=== PATIENT | female | born 1985 | race Caucasian/White ===

== ENCOUNTER 2017-12-16 07:09 | Emergency (ER) | payer BC, OTHER ==
--- NOTE | 2017-12-16 07:30 | EDM.PDOC ---
ED HPI GENERAL MEDICAL PROBLEM - General Chief Complaint: ENT Problem Stated Complaint: SORE THROAT Time Seen by Provider: 12/16/17 07:14 Source of Information: Reports: Patient History Limitations: Reports: Physical Impairment (Difficulty talking) - History of Present Illness INITIAL COMMENTS - FREE TEXT/NARRATIVE: The patient states that she has had a cough on and off since August 2017. She has had "tonsil stones"in the past, and was seen by her PCP, Nicolasa Saavedra , yesterday for this. The patient states that no tests were done, but that she will be referred to an ENT for possible tonsillectomy. She states that she started having a sore throat yesterday. It got better, but was much worse this morning. No recent fever. She denies ear pain. The patient has no prior diagnosis of streptococcal pharyngitis. The patient's boyfriend confirms that the patient snores. - Related Data Allergies Allergy/AdvReac Type Severity Reaction Status Date / Time No Known Allergies Allergy Verified 12/16/17 07:16 Home Meds: Home Meds . [No Known Home Meds] 12/16/17 [History] Past Medical History FACING [employer] J[employer]STING History: Reports: Other (See Below) (Ovarian cysts) Endocrine/Metabolic History: Reports: Other (See Below) (Prediabetes) - Past Surgical History HEENT Surgical History: Reports: Oral Surgery ([place] teeth extraction) GI Surgical History: Reports: Colonoscopy Social & Family History - Tobacco Use Smoking Status *Q: Never Smoker - Alcohol Use Alcohol Use History: Yes Alcohol Use Frequency: Socially - Recreational Drug Use Recreational Drug Use: No - Living Situation & Occupation Living situation: Reports: , with Spouse, with Family (3 foster children) 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 ED EXAM, ENT - Physical Exam Exam: See Below Exam Limited By: No Limitations General Appearance: Alert, WD/WN, Anxious, Mild Distress (Having difficulty talking) Eye Exam: Bilateral Eye: Normal Inspection Ears: Normal External Exam, Normal Canal, Hearing Grossly Normal, TM Erythema ( Mild, bilateral. No bulging.) Nose: Normal Inspection, Normal Mucousa, No Blood Mouth/Throat: Normal Inspection, Normal Gums, Normal Lips, Normal Teeth, Uvular Edema. No: Peritonsillar Mass, Pharyngeal Erythema, Throat Swelling, Tonsillar Erythema, Tonsillar Exudates, Tonsillar Swelling Head: Atraumatic, Normocephalic Neck: Normal Inspection, Supple, Non-Tender, Full Range of Motion. No: Lymphadenopathy (L), Lymphadenopathy (R) Respiratory/Chest: No Respiratory Distress, Lungs Clear, Normal Breath Sounds, No Accessory Muscle Use Cardiovascular: Normal Peripheral Pulses, Regular Rate, Rhythm, No Gallop, No JVD, No Murmur, No Rub GI/Abdominal: Normal Bowel Sounds, Soft, Non-Tender, No Organomegaly, No Distention, No Abnormal Bruit, No Mass (Female) Exam: Deferred Back: Normal Inspection, Full Range of Motion Extremities: Normal Inspection, Normal Range of Motion, No Pedal Edema, Normal Capillary Refill Neurological: Alert, Oriented, Normal Cognition, No Motor/Sensory Deficits Psychiatric: Normal Affect, Anxious Skin: Warm, Dry, Intact, Normal Color, No Rash Course - Vital Signs Last Recorded V/S: Last Vital Signs Temp 36.8 C 12/16/17 07:16 Pulse 65 12/16/17 07:16 Resp 22 H 12/16/17 07:16 BP 141/85 H 12/16/17 07:16 Pulse Ox 100 12/16/17 07:16 - Orders/Labs/Meds Orders: Active Orders 24 hr Category Date Time Status CULTURE STREP A CONFIRMATION [] Stat Lab 12/16/17 07:23 Results STREP SCRN A RAPID W CULT CONF [] Stat Lab 12/16/17 07:23 Results - Re-Assessments/Exams Free Text/Narrative Re-Assessment/Exam: 12/16/17 07:25 The patient was concerned about finding "tonsil stones", and now has a sore throat and significant uvular swelling, however, I find no abnormality with the patient's tonsils, such as swelling or erythema. The patient was not aware of it , but "tonsil stones" are normal. They are foodstuff that gets stuck in the tonsillar crypts and often putrify. If retrieved or expelled, the are very malodorous, a fact that the patient had previously discovered. She was under the impression that these reflected a tonsillar infection, which they do not. "Tonsil stones" are not an indication for tonsillectomy. I suspect that the patient's uvular swelling is because she snored last night. I recommended that she sit upright and drink a cold liquid. It should reduce quickly. 12/16/17 07:34 After drinking some ice water, the patient's uvula has already significantly improved, and she is now speaking normally. 12/16/17 08:00 The patient is feeling much better. Her rapid strep test is negative. I will discharge her home. Departure - Departure Time of Disposition: 08:00 Disposition: Home, Self-Care 01 Condition: Good Clinical Impression: Uvular edema - Discharge Information Referrals: [facility] [Primary Care Provider] - Forms: ED Department Discharge Additional Instructions: You were seen in the emergency room for a sore throat and a swollen uvula. Workup in the ER included a rapid strep test, which returned negative. You do not have strep throat. The cause of your uvular swelling is MOST LIKELY from snoring. The swelling goes down quickly when you are upright, especially if you drink some cold liquids. If this continues, however, you should consider undergoing a sleep study. The "tonsil stones" that you have seen are normal. They are food particles that find their way into the tonsilar crypts. Other than bad breath, they cause no harm. If any other problems, please do not hesitate to return to the ER. - My Orders Last 24 Hours: My Active Orders 12/16/17 07:23 CULTURE STREP A CONFIRMATION [RM] Stat STREP SCRN A RAPID W CULT CONF [RM] Stat - Assessment/Plan Last 24 Hours: My Active Orders 12/16/17 07:23 CULTURE STREP A CONFIRMATION [RM] Stat STREP SCRN A RAPID W CULT CONF [RM] Stat
== END 2017-12-16 08:12 | disposition home or self-care (01) ==
LOC: JD.ED 07:09
DX: K13.79 Other lesions of oral mucosa (principal)
CPT/HCPCS: 87081; 87430; 99282; 99283

== ENCOUNTER 2021-10-11 00:56 | Emergency (ER) | payer BC ==
[2021-10-11 02:11] LABS: CORONAVIRUS COVID-19 NAA NEGATIVE (NEGATIVE)
--- NOTE | 2021-10-11 02:16 | EDM.PDOC ---
ED HPI GENERAL MEDICAL PROBLEM - General Chief Complaint: General Stated Complaint: SORE THROAT Time Seen by Provider: 10/11/21 01:59 Source of Information: Reports: Patient, Family () History Limitations: Reports: No Limitations - History of Present Illness INITIAL COMMENTS - FREE TEXT/NARRATIVE: Mrs. Guerrero is a very pleasant 35 year old woman who now presents to the ED stating that she said about 2 weeks of subjective fever, on and off, and intermittent watery diarrhea since 09/21/2021. She then developed a sore throat and nonproductive cough yesterday, 10/10/2021, then woke around midnight with dyspnea. The patient states that she took 4 mg of loperamide on 10/05/2021, otherwise, she has not taken any xodq-tcy-allalxu or home remedies. Here in the ED this morning, the patient's initial BP is found to be mildly elevated at 151/104, otherwise, she is hemodynamically stable, afebrile, saturating 98% on room air. She appears to be slightly uncomfortable, but in no acute distress. The patient denies having a recent ear pain, nasal or sinus congestion, chest pain, palpitations, nausea, vomiting, constipation, abdominal pain, urinary symptoms, recent weight gain or weight loss, recent bloody bowel movements or black bowel movements, recent joint aches, headaches, or rashes. The patient's PCP is Faith Abbasi NP. She received her second Moderna COVID vaccination on 09/20/2021. She has not received an influenza vaccination this season. Throat Pain Score (Numeric/FACES): 7 - Related Data Allergies Allergy/AdvReac Type Severity Reaction Status Date / Time No Known Allergies Allergy Verified 10/11/21 01:16 Home Meds: Home Meds Dulaglutide [Trulicity] 1.5 mg SUBCUT WEEKLY 10/11/21 [History] Past Medical History Endocrine/Metabolic History: Reports: Diabetes, Type II, Obesity/BMI 30+ - Past Surgical History HEENT Surgical History: Reports: Tonsillectomy GI Surgical History: Reports: Colonoscopy (x 1) Female Surgical History: Reports: Other (See Below) (Colposcopy x 1) Social & Family History - Tobacco Use Tobacco Use Status *Q: Never Tobacco User Second Hand Smoke Exposure: Yes - Caffeine Use Caffeine Use: Reports: Coffee, Soda, Tea - Alcohol Use Alcohol Use History: Yes Alcohol Use Frequency: Rarely - Recreational Drug Use Recreational Drug Use: No - Living Situation & Occupation Living situation: Reports: , with Spouse, with Family (4 kids) Occupation: Employed (Addictions counselor) ED ROS GENERAL - Review of Systems Review Of Systems: Comprehensive ROS is negative, except as noted in HPI. ED EXAM, GENERAL - Physical Exam Exam: See Below Exam Limited By: No Limitations General Appearance: Alert, WD/WN, Mild Distress (appears uncomfortable) Eye Exam: Bilateral Eye: EOMI, Normal Inspection Ears: Normal External Exam, Normal Canal, Hearing Grossly Normal, Normal TMs Nose: Normal Inspection, Normal Mucosa, No Blood Throat/Mouth: Normal Inspection, Normal Lips, Normal Teeth, Normal Gums, Normal Oropharynx (no significant erythema or swelling), No Airway Compromise, Other (Somewhat hoarse voice) Head: Atraumatic, Normocephalic Neck: Normal Inspection, Supple, Non-Tender, Full Range of Motion. No: Lymphadenopathy (L), Lymphadenopathy (R) Respiratory/Chest: No Respiratory Distress, Lungs Clear, Normal Breath Sounds, No Accessory Muscle Use. No: Decreased Breath Sounds, Crackles, Rhonchi, Wheezing, Stridor, Prolonged Expiration Cardiovascular: Normal Peripheral Pulses, Regular Rate, Rhythm, No Edema, No Gallop, No JVD, No Murmur, No Rub Peripheral Pulses: 3+: Radial (L), Radial (R) GI/Abdominal: Normal Bowel Sounds, Soft, Non-Tender, No Organomegaly, No Distention, No Abnormal Bruit, No Mass Back Exam: Normal Inspection, Full Range of Motion, NT Extremities: Normal Inspection, Normal Range of Motion, No Pedal Edema, Normal Capillary Refill Neurological: Alert, Oriented, Normal Cognition, No Motor/Sensory Deficits Psychiatric: Normal Affect Skin Exam: Warm, Dry, Intact, Normal Color, No Rash Course - Vital Signs Last Recorded V/S: Last Vital Signs Temp 36.6 C 10/11/21 01:12 Pulse 87 10/11/21 01:12 Resp 18 10/11/21 01:12 BP 151/104 H 10/11/21 01:12 Pulse Ox 98 10/11/21 01:12 - Orders/Labs/Meds Orders: Active Orders 24 hr Category Date Time Status Chest 1V Frontal [CR] Stat Exams 10/11/21 02:12 Taken Labs: Laboratory Tests 10/11/21 10/11/21 10/11/21 Range/Units 01:23 02:11 02:21 WBC 11.68 H (3.98-10.04) K/mm3 RBC 4.67 (3.98-5.22) M/mm3 Hgb 13.0 (11.2-15.7) gm/dl Hct 38.6 (34.1-44.9) % MCV 82.7 (79.4-94.8) fl MCH 27.8 (25.6-32.2) pg MCHC 33.7 (32.2-35.5) g/dl RDW Std Deviation 38.8 (36.4-46.3) fL Plt Count 332 (182-369) K/mm3 MPV 9.6 (9.4-12.3) fl Neutrophils % (Manual) 63 H (40-60) % Band Neutrophils % 4 (0-10) % Lymphocytes % (Manual) 22 (20-40) % Atypical Lymphs % 0 % Monocytes % (Manual) 8 (2-10) % Eosinophils % (Manual) 3 (0.7-5.8) % Basophils % (Manual) 0 L (0.1-1.2) Platelet Estimate Adequate RBC Morph Comment Normal Sodium (136-145) mEq/L Potassium (3.5-5.1) mEq/L Chloride (98-107) mEq/L Carbon Dioxide (21-32) mEq/L Anion Gap (5-15) BUN (7-18) mg/dL Creatinine (0.55-1.02) mg/dL Est Cr Clr Drug Dosing mL/min Estimated GFR (MDRD) (>60) mL/min BUN/Creatinine Ratio (14-18) Glucose (70-99) mg/dL Calcium (8.5-10.1) mg/dL Total Bilirubin (0.2-1.0) mg/dL AST (15-37) U/L ALT (14-59) U/L Alkaline Phosphatase (46-116) U/L C-Reactive Protein (<1.0) mg/dL Total Protein (6.4-8.2) g/dl Albumin (3.4-5.0) g/dl Globulin gm/dL Albumin/Globulin Ratio (1-2) Influenza Type A RNA Negative (NEGATIVE) Influenza Type B RNA Negative (NEGATIVE) SARS-CoV-2 RNA (CASH) Negative (NEGATIVE) Group A Strep (PCR) Not detected (NOT DETECT) 10/11/21 Range/Units 02:21 WBC (3.98-10.04) K/mm3 RBC (3.98-5.22) M/mm3 Hgb (11.2-15.7) gm/dl Hct (34.1-44.9) % MCV (79.4-94.8) fl MCH (25.6-32.2) pg MCHC (32.2-35.5) g/dl RDW Std Deviation (36.4-46.3) fL Plt Count (182-369) K/mm3 MPV (9.4-12.3) fl Neutrophils % (Manual) (40-60) % Band Neutrophils % (0-10) % Lymphocytes % (Manual) (20-40) % Atypical Lymphs % % Monocytes % (Manual) (2-10) % Eosinophils % (Manual) (0.7-5.8) % Basophils % (Manual) (0.1-1.2) Platelet Estimate RBC Morph Comment Sodium 139 (136-145) mEq/L Potassium 3.1 L (3.5-5.1) mEq/L Chloride 104 (98-107) mEq/L Carbon Dioxide 26 (21-32) mEq/L Anion Gap 12.1 (5-15) BUN 14 (7-18) mg/dL Creatinine 0.7 (0.55-1.02) mg/dL Est Cr Clr Drug Dosing 97.79 mL/min Estimated GFR (MDRD) > 60 (>60) mL/min BUN/Creatinine Ratio 20.0 H (14-18) Glucose 179 H (70-99) mg/dL Calcium 8.7 (8.5-10.1) mg/dL Total Bilirubin 0.3 (0.2-1.0) mg/dL AST 16 (15-37) U/L ALT 39 (14-59) U/L Alkaline Phosphatase 91 (46-116) U/L C-Reactive Protein 0.7 (<1.0) mg/dL Total Protein 7.1 (6.4-8.2) g/dl Albumin 3.8 (3.4-5.0) g/dl Globulin 3.3 gm/dL Albumin/Globulin Ratio 1.2 (1-2) Influenza Type A RNA (NEGATIVE) Influenza Type B RNA (NEGATIVE) SARS-CoV-2 RNA (CASH) (NEGATIVE) Group A Strep (PCR) (NOT DETECT) - Re-Assessments/Exams Free Text/Narrative Re-Assessment/Exam: 10/11/21 02:14 A swab for the SARS-CoV-2 virus and influenza A + B viruses was collected at triage. I then swab the patient for group A strep by PCR. I have additionally ordered a CBC, CMP, CRP, and portable chest x-ray. 10/11/21 02:43 Portable chest radiograph appears to be grossly normal. The cardiac silhouette is within normal limits. No pulmonary vascular congestion. No pleural effusions seen on this AP view. No focal infiltrate. No pneumothorax. Formal read per the Radiologist pending. The patient's swab for the SARS-CoV-2 virus and influenza A + B irises is negative for all. 10/11/21 03:12 The patient's CBC is remarkable for mild leukocytosis of 11.68, with 4% bandemia, and the remainder of her CBC being unremarkable. Her CMP is remarkable for mild hypokalemia of 3.1, and hyperglycemia of 179, with the remainder of her CMP being unremarkable. Her CRP is within normal limits at 0.7. Her swab for group A strep by PCR is negative. 10/11/21 03:15 Test results discussed with the patient and her . As above, today's work-up is grossly unremarkable. She is likely suffering from a viral URI. I explained that it is possible that she has a false-negative COVID test, and if there is any concern of that, to get retested in 2 or 3 days. Departure - Departure Time of Disposition: 03:16 Disposition: Home, Self-Care 01 Condition: Good Clinical Impression: Viral URI with cough - Discharge Information *PRESCRIPTION DRUG MONITORING PROGRAM REVIEWED*: Not Applicable *COPY OF PRESCRIPTION DRUG MONITORING REPORT IN PATIENT ELIN: Not Applicable Referrals: Faith Abbasi NP [Ordering Only Provider] - Forms: ED Department Discharge Additional Instructions: You were seen in the emergency room for watery diarrhea since 09/21/2021, a possible fever on and off for the past 2 weeks, a sore throat and cough since Friday, and shortness of breath since midnight. Work-up in the ER included several blood tests, a swab for the SARS-CoV-2 virus, influenza A + B viruses, and group A strep, and a chest x-ray. Your blood sugar was found to be modestly elevated at 179, and your potassium was found to be mildly depressed at 3.1. Your white blood cell count was found to be mildly elevated at 11.68, however, it does not appear that you have a bacterial infection. The remainder of your work-up was unremarkable. Based on your history, physical exam, and ER tests, you are most likely suffering from a viral upper respiratory infection. Unfortunately, there are no medicines to treat a viral URI - it will have to run its course. We do not recommend that you take any wlxr-[id number] cough or cold remedies, as they have been shown to be of no benefit, but do have side effects, such as an upset stomach. You may continue to take rfzj-wft-zgiwqqb loperamide (Imodium AD) as needed for diarrhea, in accordance with the directions on the label. Stay adequately hydrated. You should probably avoid juice and milk, as they may make your diarrhea worse. You may take [id number] ibuprofen as needed for discomfort. If there is any concern that you had a false negative test for COVID-19, we recommend you get retested in 2 or 3 days. If any other problems, please do not hesitate to return to the ER. Sepsis Event Note (ED) - Evaluation Sepsis Screening Result: No Definite Risk - Focused Exam Vital Signs: Vital Signs Temp Pulse Resp BP Pulse Ox 10/11/21 01:12 36.6 C 87 18 151/104 H 98 - My Orders Last 24 Hours: My Active Orders 10/11/21 02:12 Chest 1V Frontal [CR] Stat - Assessment/Plan Last 24 Hours: My Active Orders 10/11/21 02:12 Chest 1V Frontal [CR] Stat
--- NOTE | 2021-10-11 06:13 | CR ---
Chest: Frontal view of the chest Comparison: Prior chest x-ray of 01/10/11. Heart size and mediastinum are normal. Slight linear density which most likely represents a small scar is seen within the right lung base. Lungs otherwise are clear. Bony structures show nothing acute. Impression: 1. Nothing acute is seen on frontal chest x-ray. Diagnostic code #2
== END 2021-10-11 03:26 | disposition home or self-care (01) ==
LOC: JD.ED 00:56
DX: J06.9 Acute upper respiratory infection, unspecified (principal); Z20.822 Contact with and (suspected) exposure to COVID-19
CPT/HCPCS: 0240U; 36415; 71045; 80053; 85007; 85027; 86140; 87651; 99283